=== PATIENT | female | born 1975 | race Caucasian/White ===

== ENCOUNTER 2017-04-10 20:07 | Emergency (ER) | payer BC, OTHER ==
[~2017-04-10] VITALS: Ht 172.7 cm; Wt 106.0 kg
[~2017-04-10 20:07] MED LIST: CLON.5 PO; LEXA20TA PO; PRIL20TA2 PO
[2017-04-10 20:14] VITALS: BP 102/70; PULSE 95; RESP 18; TEMP 98.7; O2SAT 98
[2017-04-10] MEDS ORDERED: CLON1 PO (20:20)
[2017-04-10] MEDS ORDERED: CALC250T PO (20:20)
[2017-04-10] MEDS ORDERED: PRIL20TA2 (20:20)
[2017-04-10] MEDS ORDERED: FERR324T8 PO (20:20)
[2017-04-10] MEDS ORDERED: VITA200013 (20:20)
[2017-04-10] MEDS ORDERED: FAMO1TAB37 PO (20:20)
[2017-04-10] MEDS ORDERED: LEXA20TA PO (20:20)
--- NOTE | 2017-04-10 20:20 | PD ---
HPI Chief Complaint: ba Time Seen by Provider: 20:19 Travel History International Travel<30 days: No Contact w/Intl Traveler<30days: No Traveled to known affect area: No History of Present Illness HPI 41-year-old female presents to the emergency department under Taylor act for psychiatric evaluation. Patient states she has been having difficult time with her boyfriend's recent suicide. She had planned a dinner this evening to monitor him and nobody could show up. This caused her to be upset. Patient states she does have a shotgun at the house. She has been drinking alcohol. She has been very depressed and having suicidal thoughts. Per report, patient had barricaded herself in the house with the shotgun. Patient states that she did not do this. Patient has no other medical needs at this time. [facility] Past Medical History Anxiety: Yes Depression: Yes GERD: Yes Past Surgical History Appendectomy: Yes Other Surgery: Yes (RNY gastric bypass 2013) Social History Alcohol Use: Yes (MONTHLY) Tobacco Use: No Substance Use: Yes Allergies-Medications (Allergen,Severity, Reaction): Coded Allergies: No Known Allergies (Unverified Adverse Reaction, Unknown, 04/10/17) Reported Meds & Prescriptions Reported Meds & Active Scripts Active Reported Ritalin IR (Methylphenidate HCl) 10 Mg Tab 10 Mg PO BIDAC Vitamin D (Cholecalciferol) 2,000 Unit Cap Ferrous Fumarate 324 Mg (106 Mg Iron) Tab 325 Mg PO DAILY Calcium Citrate 250 Mg Calcium Tab 250 Mg PO BID Pepcid (Famotidine) 20 Mg Tab 20 Mg PO DAILY Prilosec (Omeprazole Magnesium) 20 Mg Tab Klonopin (Clonazepam) 1 Mg Tab 1 Mg PO TID PRN Lexapro (Escitalopram Oxalate) 20 Mg Tab 20 Mg PO DAILY Review of Systems Except as stated in HPI: all other systems reviewed are Neg Physical Exam Narrative GENERAL: Well-nourished female patient, in no acute distress. SKIN: Focused skin assessment warm/dry. HEAD: Atraumatic. Normocephalic. EYES: Pupils equal and round. No scleral icterus. No injection or drainage. ENT: No nasal bleeding or discharge. Mucous membranes pink and moist. NECK: Trachea midline. No JVD. CARDIOVASCULAR: Regular rate and rhythm. No murmur appreciated. RESPIRATORY: No accessory muscle use. Clear to auscultation. Breath sounds equal bilaterally. GASTROINTESTINAL: Abdomen soft, non-tender, nondistended. Hepatic and splenic margins not palpable. MUSCULOSKELETAL: No obvious deformities. No clubbing. No cyanosis. No edema. NEUROLOGICAL: Awake and alert. No obvious cranial nerve deficits. Motor grossly within normal limits. Normal speech. Data Data Last Documented VS Vital Signs Date Time Temp Pulse Resp B/P (MAP) Pulse Ox O2 Delivery O2 Flow Rate FiO2 04/10/17 23:34 98.3 78 16 126/77 (93) 99 Room Air Orders Orders Complete Blood Count With Diff (04/10/17 20:19) Basic Metabolic Panel (Bmp) (04/10/17 20:19) Psych Screen (04/10/17 20:19) Drug Screen, Random Urine (04/10/17 20:19) Alcohol (Ethanol) (04/10/17 20:19) Ed Urine Pregnancytest Poc (04/10/17 20:20) Acetaminophen (Tylenol) (04/11/17 01:30) Labs Laboratory Tests Test 04/10/17 20:25 04/10/17 20:30 White Blood Count 5.4 TH/MM3 Red Blood Count 4.70 MIL/MM3 Hemoglobin 14.7 GM/DL Hematocrit 43.7 % Mean Corpuscular Volume 92.9 FL Mean Corpuscular Hemoglobin 31.3 PG Mean Corpuscular Hemoglobin Concent 33.6 % Red Cell Distribution Width 12.4 % Platelet Count 208 TH/MM3 Mean Platelet Volume 7.5 FL Neutrophils (%) (Auto) 69.3 % Lymphocytes (%) (Auto) 12.5 % Monocytes (%) (Auto) 16.7 % Eosinophils (%) (Auto) 0.5 % Basophils (%) (Auto) 1.0 % Neutrophils # (Auto) 3.8 TH/MM3 Lymphocytes # (Auto) 0.7 TH/MM3 Monocytes # (Auto) 0.9 TH/MM3 Eosinophils # (Auto) 0.0 TH/MM3 Basophils # (Auto) 0.1 TH/MM3 CBC Comment DIFF FINAL Differential Comment Blood Urea Nitrogen 8 MG/DL Creatinine 1.18 MG/DL Random Glucose 77 MG/DL Calcium Level 8.9 MG/DL Sodium Level 136 MEQ/L Potassium Level 3.6 MEQ/L Chloride Level 100 MEQ/L Carbon Dioxide Level 27.7 MEQ/L Anion Gap 8 MEQ/L Estimat Glomerular Filtration Rate 51 ML/MIN Ethyl Alcohol Level LESS THAN 3 MG/DL Urine Opiates Screen NEG Urine Barbiturates Screen NEG Urine Amphetamines Screen NEG Urine Benzodiazepines Screen NEG Urine Cocaine Screen NEG Urine Cannabinoids Screen POS MDM Medical Decision Making Medical Screen Exam Complete: Yes Emergency Medical Condition: Yes Medical Record Reviewed: Yes Differential Diagnosis Mood disorder versus personality disorder versus adjustment reaction disorder Narrative Course 41-year-old female presents to emergency department under Taylor act for psychiatric evaluation. Patient is tearful. She does report being depressed and missing her boyfriend who committed suicide last week. Patient does report having thoughts of suicide. Lab work is without acute concern. Patient is medically cleared to undergo psychiatric screening for further evaluation and disposition. Mental health screening discussed with the patient. Psychiatric screen ordered. Diagnosis Primary Impression: Adjustment reaction Qualified Codes: F43.23 - Adjustment disorder with mixed anxiety and depressed mood Condition: Yuki Panchal Apr 10, 2017 20:20
[2017-04-10] MEDS ORDERED: METHY10 PO (20:21)
[2017-04-10 20:48] LABS: AUTOMATED NEUTROPHIL # 3.8 TH/MM3 (1.8-7.7); BASOPHIL # 0.1 TH/MM3 (0-0.2); EOSINOPHIL % 0.5 % (0.0-4.0); HEMATOCRIT 43.7 % (35.0-46.0); HEMOGLOBIN 14.7 GM/DL (11.6-15.3); LYMPH % 12.5 % (9.0-44.0); LYMPHOCYTE # 0.7 TH/MM3 (1.0-4.8); MEAN CELL VOLUME 92.9 FL (80.0-100.0); MEAN CORPUSCULAR HEMOGLOBIN 31.3 PG (27.0-34.0); MEAN CORPUSCULAR HGB CONC 33.6 % (32.0-36.0); MEAN PLATELET VOLUME 7.5 FL (7.0-11.0); MONO % 16.7 % (0.0-8.0); MONOCYTE # 0.9 TH/MM3 (0-0.9); NEUT % 69.3 % (16.0-70.0); PLATELET COUNT 208 TH/MM3 (150-450); RED CELL DISTRIBUTION WIDTH 12.4 % (11.6-17.2); WHITE BLOOD COUNT 5.4 TH/MM3 (4.0-11.0)
[2017-04-10 21:12] LABS: BICARBONATE 27.7 MEQ/L (21.0-32.0); BLOOD UREA NITROGEN 8 MG/DL (7-18); CALCIUM 8.9 MG/DL (8.5-10.1); CHLORIDE 100 MEQ/L (98-107); CREATININE 1.18 MG/DL (0.50-1.00); GLOMERULAR FILTRATION RATE 51 ML/MIN (>89); GLUCOSE,RANDOM 77 MG/DL (74-106); SODIUM (NA) 136 MEQ/L (136-145)
[2017-04-10 23:34] VITALS: BP 126/77; PULSE 78; RESP 16; TEMP 98.3; O2SAT 99
[2017-04-11] MEDS ORDERED: ACETAMINOPHEN 325 MG TAB PO ONE (01:30)
[2017-04-11 03:00] VITALS: BP 119/68; PULSE 90; RESP 17; TEMP 100; O2SAT 96
--- NOTE | 2017-04-11 11:30 | PD ---
History of Present Illness Chief Complaint: Psychiatric Symptoms Time Seen by Provider: 11:15 Travel History International Travel<30 Days: No Contact w/Intl Traveler<30days: No Known affected area: No Legal Status Legal Status: Taylor Act Taylor Act Signed By: Yann Taylor Act Comment: 04/10/2017 7:23 PM DEP. 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 Apparently the patient's boyfriend of 4 months, shot himself last Wednesday. Patient has been prescribed Lexapro, Elavil, Klonopin and Xanax by her primary care physician. Her Elavil dose was increased recently and she has been taking the Klonopin 3 times per day, as prescribed, as well as Xanax for breakthrough anxiety. Last night she reports consuming an entire model of wine. She currently admits this was a bad idea and feels her suicidality was related to the consumption of alcohol, drugs and situation. At this time she is no longer intoxicated and denies any suicidal or homicidal ideation, plan or intent. She denies any psychotic symptoms and her cognition is intact. She has the support of numerous friends and her "". She would like to be released to go home as she has animals to take care of, but then plans to stay with one of her friends. She is in treatment with an [facility] counselor and plans to return for further treatment. She is verbally irma for safety and she is competent to do so. [facility] Past Medical History Anxiety: Yes Depression: Yes Diabetes: No Patient Takes Glucophage: No Diminished Hearing: No GERD: Yes Immunizations Current: Yes Tetanus Vaccination: > 5 Years Influenza Vaccination: Yes ?: Not LMP: CURRENT : 0 Past Surgical History Appendectomy: Yes Other Surgery: Yes (RNY gastric bypass 2013) Psychiatric History Psychiatric History Hx Psychiatric Treatment: Patient with a history of depression and anxiety. She no longer sees a psychiatrist for outpatient therapy. Patient has been to [facility] in 2016 after her admission to [facility] Mar 2015. She states her PCP Dr. Leo Ge in [place] provides her medications. History of Inpatient Treatment: Yes Social History Hx Alcohol Use: Yes (MONTHLY) Hx Tobacco Use: No Hx Substance Use: No Substance Use Type: Alcohol Other Substances Used: occassional alcohol Hx of Substance Use Treatment: No Allergies-Medications (Allergen,Severity, Reaction): Coded Allergies: No Known Allergies (Unverified Adverse Reaction, Unknown, 04/10/17) Reported Meds & Prescriptions Reported Meds & Active Scripts Active Reported Ritalin IR (Methylphenidate HCl) 10 Mg Tab 10 Mg PO BIDAC Vitamin D (Cholecalciferol) 2,000 Unit Cap Ferrous Fumarate 324 Mg (106 Mg Iron) Tab 325 Mg PO DAILY Calcium Citrate 250 Mg Calcium Tab 250 Mg PO BID Pepcid (Famotidine) 20 Mg Tab 20 Mg PO DAILY Prilosec (Omeprazole Magnesium) 20 Mg Tab Klonopin (Clonazepam) 1 Mg Tab 1 Mg PO TID PRN Lexapro (Escitalopram Oxalate) 20 Mg Tab 20 Mg PO DAILY Review of Systems Except as stated in HPI: all other systems reviewed are Neg Mental Status Examination Appearance: Appropriate Consciousness: Alert Orientation: x4 Motor Activity: Normal gait Speech: Unremarkable Language: Adequate Fund of Knowledge: Adequate Attention and Concentration: Adequate Memory: Unremarkable Mood: Sad Affect: Sad Thought Process & Associations: Intact Thought Content: Appropriate Hallucination Type: None Delusion Type: None Suicidal Ideation: No Suicidal Plan: No Suicidal Intention: No Homicidal Ideation: No Homicidal Plan: No Homicidal Intention: No Insight: Adequate Judgment: Adequate MDM Medical Decision Making Medical Record Reviewed: Yes Assessment/Plan Patient interviewed at bedside. Electronic medical record reviewed. Case discussed with nurse Laura. Patient is not felt to meet Taylor act criteria at this time. She does not wish to be hospitalized and she is irma for safety. She is willing to be treated on an outpatient basis and she is competent to make these decisions. Least restrictive alternative applies. Orders Orders Complete Blood Count With Diff (04/10/17 20:19) Basic Metabolic Panel (Bmp) (04/10/17 20:19) Psych Screen (04/10/17 20:19) Drug Screen, Random Urine (04/10/17 20:19) Alcohol (Ethanol) (04/10/17 20:19) Ed Urine Pregnancytest Poc (04/10/17 20:20) Acetaminophen (Tylenol) (04/11/17 01:30) Diet Regular Basic (04/11/17 Breakfast) Diet Regular Basic (04/11/17 Lunch) Results Vital Signs Date Time Temp Pulse Resp B/P (MAP) Pulse Ox O2 Delivery O2 Flow Rate FiO2 04/11/17 06:00 04/11/17 03:00 100.0 90 17 119/68 (85) 96 Room Air 04/10/17 23:34 98.3 78 16 126/77 (93) 99 Room Air 04/10/17 20:14 98.7 95 18 102/70 (81) 98 Laboratory Tests Test 04/10/17 20:25 04/10/17 20:30 White Blood Count 5.4 Red Blood Count 4.70 Hemoglobin 14.7 Hematocrit 43.7 Mean Corpuscular Volume 92.9 Mean Corpuscular Hemoglobin 31.3 Mean Corpuscular Hemoglobin Concent 33.6 Red Cell Distribution Width 12.4 Platelet Count 208 Mean Platelet Volume 7.5 Neutrophils (%) (Auto) 69.3 Lymphocytes (%) (Auto) 12.5 Monocytes (%) (Auto) 16.7 Eosinophils (%) (Auto) 0.5 Basophils (%) (Auto) 1.0 Neutrophils # (Auto) 3.8 Lymphocytes # (Auto) 0.7 Monocytes # (Auto) 0.9 Eosinophils # (Auto) 0.0 Basophils # (Auto) 0.1 CBC Comment DIFF FINAL Differential Comment Blood Urea Nitrogen 8 Creatinine 1.18 Random Glucose 77 Calcium Level 8.9 Sodium Level 136 Potassium Level 3.6 Chloride Level 100 Carbon Dioxide Level 27.7 Anion Gap 8 Estimat Glomerular Filtration Rate 51 Ethyl Alcohol Level LESS THAN 3 Urine Opiates Screen NEG Urine Barbiturates Screen NEG Urine Amphetamines Screen NEG Urine Benzodiazepines Screen NEG Urine Cocaine Screen NEG Urine Cannabinoids Screen POS Diagnosis Primary Impression: Adjustment disorder with mixed disturbance of emotions and conduct Additional Impression: Alcohol abuse Condition: Stable Problem Qualifiers Juan Alberto Varela MD Apr 11, 2017 11:30
--- NOTE | 2017-04-11 11:31 | PD ---
Physical Exam Time Seen by Provider: 11:[address] Varela has evaluated the patient, lifted the Taylor act and cleared the patient for discharge. Data Data Last Documented VS Vital Signs Date Time Temp Pulse Resp B/P (MAP) Pulse Ox O2 Delivery O2 Flow Rate FiO2 04/11/17 06:00 04/11/17 03:00 100.0 90 17 96 Room Air Orders Orders Complete Blood Count With Diff (04/10/17 20:19) Basic Metabolic Panel (Bmp) (04/10/17 20:19) Psych Screen (04/10/17 20:19) Drug Screen, Random Urine (04/10/17 20:19) Alcohol (Ethanol) (04/10/17 20:19) Ed Urine Pregnancytest Poc (04/10/17 20:20) Acetaminophen (Tylenol) (04/11/17 01:30) Diet Regular Basic (04/11/17 Breakfast) Diet Regular Basic (04/11/17 Lunch) Labs Laboratory Tests Test 04/10/17 20:25 04/10/17 20:30 White Blood Count 5.4 TH/MM3 Red Blood Count 4.70 MIL/MM3 Hemoglobin 14.7 GM/DL Hematocrit 43.7 % Mean Corpuscular Volume 92.9 FL Mean Corpuscular Hemoglobin 31.3 PG Mean Corpuscular Hemoglobin Concent 33.6 % Red Cell Distribution Width 12.4 % Platelet Count 208 TH/MM3 Mean Platelet Volume 7.5 FL Neutrophils (%) (Auto) 69.3 % Lymphocytes (%) (Auto) 12.5 % Monocytes (%) (Auto) 16.7 % Eosinophils (%) (Auto) 0.5 % Basophils (%) (Auto) 1.0 % Neutrophils # (Auto) 3.8 TH/MM3 Lymphocytes # (Auto) 0.7 TH/MM3 Monocytes # (Auto) 0.9 TH/MM3 Eosinophils # (Auto) 0.0 TH/MM3 Basophils # (Auto) 0.1 TH/MM3 CBC Comment DIFF FINAL Differential Comment Blood Urea Nitrogen 8 MG/DL Creatinine 1.18 MG/DL Random Glucose 77 MG/DL Calcium Level 8.9 MG/DL Sodium Level 136 MEQ/L Potassium Level 3.6 MEQ/L Chloride Level 100 MEQ/L Carbon Dioxide Level 27.7 MEQ/L Anion Gap 8 MEQ/L Estimat Glomerular Filtration Rate 51 ML/MIN Ethyl Alcohol Level LESS THAN 3 MG/DL Urine Opiates Screen NEG Urine Barbiturates Screen NEG Urine Amphetamines Screen NEG Urine Benzodiazepines Screen NEG Urine Cocaine Screen NEG Urine Cannabinoids Screen POS MDM Supervised Visit with DASHAWN: No Narrative Course Dr. Varela has evaluated the patient, lifted the Taylor act and cleared the patient for discharge. Patient contracts safety. Denies suicidal or homicidal ideations. Patient will be provided community resource packet to [facility] for follow-up. Has friends and family for support. Patient was medically cleared by alternate provider prior to psych screening. Patient has been evaluated by psychiatry and and is now cleared for discharge. Diagnosis Primary Impression: Adjustment reaction Qualified Codes: F43.23 - Adjustment disorder with mixed anxiety and depressed mood Referrals: [facility] (Out patient) [facility] Primary Care Physician Psychiatrist [facility] Patient Instructions: General Instructions, Mood Disorders (ED) Additional Instruction: Contract safety to your self and others Follow-up with psychiatry Follow-up with primary care provider Follow-up with Fady Brown Return to the emergency department immediately with worsening of symptoms Med/Other Pt SpecificInfo: No Change to Meds, No Meds Exist/No RX given Disposition: 01 DISCHARGE HOME Condition: Stable Monica Barajas Apr 11, 2017 11:31
== END 2017-04-11 14:30 | disposition home or self-care (01) ==
LOC: NEPD 20:07 → NEPJ 04-11 14:30
DX: F43.23 Adjustment disorder with mixed anxiety and depressed mood (principal); F10.10 Alcohol abuse, uncomplicated; K21.9 Gastro-esophageal reflux disease without esophagitis; Z79.899 Other long term (current) drug therapy
CPT/HCPCS: 80048; 80307; 84703; 85025; 99284